=== PATIENT | male | born 1980 | race Caucasian/White ===

== ENCOUNTER 2016-08-21 12:46 | Emergency (ER) | payer SELFPAY ==
[~2016-08-21] VITALS: Ht 170.2 cm; Wt 73.9 kg
[~2016-08-21 12:46] MED LIST: LYRICA100 MG PO; MOTRIN800 MG PO; NAPROSYN500 MG PO; PERCOCET 5/31 TABLET PO; ZANAFLEX2 M1 PO
[2016-08-21 12:55] VITALS: BP 136/98
[2016-08-21] MEDS ORDERED: KEFLEX500 MG PO (14:19)
[2016-08-21] MEDS ORDERED: NORCO 5/3251 TABLET PO (14:20)
== END 2016-08-21 14:53 | disposition home or self-care (01) ==
LOC: EME 12:46
DX: L60.0 Ingrowing nail (principal)
CPT/HCPCS: 99281; 99283

== ENCOUNTER 2016-11-12 09:53 | Emergency (ER) | payer SELFPAY ==
[~2016-11-12] VITALS: Ht 170.2 cm; Wt 70.7 kg
[~2016-11-12 09:53] MED LIST changes: +KEFLEX500 MG PO; +NORCO 5/3251 TABLET PO
[2016-11-12] MEDS ORDERED: NORCO 5/3251 TABLET PO (11:55)
[2016-11-12 12:08] VITALS: BP 118/80
== END 2016-11-12 12:08 | disposition home or self-care (01) ==
LOC: EME 09:53
PROC: 2W3CX1Z Immobilization of Right Lower Arm using Splint (ICD-10-PCS; principal; 2016-11-12)
DX: S62.316A Displaced fracture of base of fifth metacarpal bone, right hand, initial encounter for closed fracture (principal); W22.8XXA Striking against or struck by other objects, initial encounter
CPT/HCPCS: 73130; 99281; 99283